=== PATIENT | male | born 1970 | race Asian ===

== ENCOUNTER 2019-03-30 01:14 | Emergency (ER) | payer OTHER ==
[~2019-03-30] VITALS: Ht 177.8 cm; Wt 88.0 kg
--- NOTE | 2019-03-30 02:30 | NUR ---
Patient discharged to home in stable conditon. Written and verbal after care instructions given. Patient verbalizes understanding of instructions. Walked out of ER with no distress noted.
[2019-03-30 02:31] VITALS: BP 128/92
== END 2019-03-30 02:31 | disposition home or self-care (01) ==
LOC: ER 01:22
DX: R07.89 Other chest pain (principal)
CPT/HCPCS: 36415; 70030-TC; 93005; A4663